=== PATIENT | female | born 1970 | race Two or more races ===

== ENCOUNTER 2018-04-07 11:12 | Emergency (ER) | payer BC ==
[~2018-04-07] VITALS: Ht 157.5 cm; Wt 50.9 kg
[2018-04-07 11:16] VITALS: Ht 157.5 cm; Wt 50.9 kg
[2018-04-07 12:20] LABS: CALCIUM 8.4 mg/dL (8.5-10.1); CARBON DIOXIDE 27.5 mmol/L (21-32); CHLORIDE SERUM 105 mmol/L (98-107); CREATININE SERUM 0.6 mg/dL (0.6-1.0); GFR1 > 60 mL/min; GLUCOSE SERUM 94 mg/dL (74-106); POTASSIUM SERUM 3.2 mmol/L (3.5-5.1); SODIUM SERUM 140 mmol/L (136-145)
[2018-04-07 12:24] LABS: BASOPHIL % 0.3 % (0-2); PLATELET COUNT 192 x10^3mcL (130-400); RED CELL DISTRIBUTION WIDTH 12.4 % (11.5-14.5)
[2018-04-07 12:25] LABS: ALBUMIN 3.8 g/dL (3.4-5.0); ALKALINE PHOSPHATASE 47 U/L (46-116); ALT/SGPT 18 U/L (14-59); AST/SGOT 17 U/L (15-37); BILIRUBIN TOTAL 0.63 mg/dL (0.20-1.00); TOTAL PROTEIN, SERUM 7.2 g/dL (6.4-8.2)
[2018-04-07 14:45] VITALS: BP 120/73
== END 2018-04-07 15:09 | disposition home or self-care (01) ==
LOC: ED 11:12
PROVIDERS: Emergency Medicine
DX: K14.9 Disease of tongue, unspecified (principal)
CPT/HCPCS: J2270; J2405; Q9967